=== PATIENT | male | born 1980 | race Hispanic/Latino ===

== ENCOUNTER 2020-08-24 09:59 | Emergency (ER) | payer SELFPAY ==
[~2020-08-24] VITALS: Ht 172.7 cm; Wt 82.0 kg
[2020-08-24 10:37] LABS: HEMATOCRIT 20.6 % (39.0-50.0); IMMATURE GRANULOCYTES 0.4 % (0.0-5.0); MEAN CELL VOLUME 91.2 fL CALC (80.0-100.0); MEAN CORPUSCULAR HGB 28.8 pG CALC (26.0-32.0); MEAN CORPUSCULAR HGB CONC 31.6 g/dL CAL (32.0-36.0); NEUT# 11.59 thou/uL (1.82-7.42); RED BLOOD COUNT 2.26 mill/uL (4.70-6.10); RED CELL DISTRI WIDTH 13.2 % (11.5-15.5)
[2020-08-24 11:05] LABS: ALBUMIN 4.3 g/dL (3.2-5.0); ALKALINE PHOSPHATASE 52 u/l (38-126); BILIRUBIN, TOTAL 0.4 mg/dL (0.0-1.4); CHLORIDE 106 mmol/l (95-108); POTASSIUM 4.2 mmol/l (3.5-5.1); SGOT/AST 23 u/l (17-59); SODIUM 140 mmol/l (137-146); TOTAL PROTEIN 7.9 g/dL (6.3-8.2)
[2020-08-24 11:09] LABS: HEMOGLOBIN 6.5 g/dl (14.0-18.0)
[2020-08-24 12:13] LABS: ANION GAP 33 (6-22 (CALC)); BUN/CREATININE RATIO 5 (12-20 (CALC)); GFR 2 ML/MIN (>=60 (CALC)); GFR FOR AFR.AMER. 2 ML/MIN (>=60 (CALC))
[2020-08-24 12:15] LABS: BUN 158 mg/dL (9-20); CARBON DIOXIDE < 5 mmol/l (22-30)
[2020-08-24 12:16] LABS: CREATININE 29.2 mg/dL (0.7-1.3)
[2020-08-24 12:23] LABS: URINE BILIRUBIN - DIPSTICK NEGATIVE (NEGATIVE); URINE BLOOD DIPSTICK MODERATE (NEGATIVE); URINE COLOR YELLOW; URINE GLUCOSE - DIPSTICK NEGATIVE (NEGATIVE); URINE KETONE NEGATIVE (NEGATIVE); URINE LEUK ESTERASE NEGATIVE (NEGATIVE); URINE PH 5.5 (4.5-8.0); URINE PROTEIN - DIPSTICK 100 mg/dL (NEG-TRACE); URINE UROBILINOGEN - DIPSTICK 0.2 E.U./dL (0.2)
[2020-08-24 12:26] LABS: URINE NITRITE - DIPSTICK NEGATIVE (Negative)
[2020-08-24 12:27] LABS: URINE EPITHELIAL CELLS FEW EPI/hpf (0-FEW); URINE MUCUS MODERATE hpf (NONE-FEW)
[2020-08-24 13:30] VITALS: BP 177/88
[2020-08-24 13:56] VITALS: BP 176/88
[2020-08-24 14:30] VITALS: BP 186/88
== END 2020-08-24 14:30 | DRG 812 ==
LOC: ED 09:59
PROVIDERS: Family Medicine
PROC: 30233N1 Transfusion of Nonautologous Red Blood Cells into Peripheral Vein, Percutaneous Approach (ICD-10-PCS; principal; 2020-08-24)
DX: D64.9 Anemia, unspecified (principal); N17.9 Acute kidney failure, unspecified; E83.51 Hypocalcemia; R10.84 Generalized abdominal pain; I10 Essential (primary) hypertension; F17.200 Nicotine dependence, unspecified, uncomplicated; Z20.822 Contact with and (suspected) exposure to COVID-19
CPT/HCPCS: P9016; S0164

== ENCOUNTER 2021-02-15 07:49 | Emergency (ER) | payer SELFPAY ==
[~2021-02-15] VITALS: Ht 172.7 cm; Wt 104.5 kg
[2021-02-15] MEDS ORDERED: CLONIDINE0.1 MG PO (08:08)
[2021-02-15] MEDS ORDERED: CALCITRIOL0.25 MC1 PO (08:08)
[2021-02-15] MEDS ORDERED: METOPROLOL TAR100 MG PO (08:09)
[2021-02-15] MEDS ORDERED: CALTRATE 600+D1 CHW PO (08:09)
[2021-02-15 08:57] LABS: IMMATURE GRANULOCYTES 0.1 % (0.0-5.0); MEAN CORPUSCULAR HGB 26.3 pG CALC (26.0-32.0); MEAN CORPUSCULAR HGB CONC 31.9 g/dL CAL (32.0-36.0); NEUT# 5.09 thou/uL (1.82-7.42); RED BLOOD COUNT 3.38 mill/uL (4.70-6.10); RED CELL DISTRI WIDTH 14.1 % (11.5-15.5)
[2021-02-15 09:01] LABS: HEMATOCRIT 27.9 % (39.0-50.0); HEMOGLOBIN 8.9 g/dl (14.0-18.0); MEAN CELL VOLUME 82.5 fL CALC (80.0-100.0)
[2021-02-15 09:15] LABS: ALBUMIN 4.2 g/dL (3.2-5.0); TOTAL PROTEIN 7.5 g/dL (6.3-8.2)
[2021-02-15 09:38] LABS: BILIRUBIN, TOTAL 0.7 mg/dL (0.0-1.4); POTASSIUM 5.9 mmol/l (3.5-5.1)
[2021-02-15] MEDS ORDERED: SPS15 GM/601 PO (10:23)
[2021-02-15 13:15] VITALS: BP 182/90
== END 2021-02-15 13:18 | disposition home or self-care (01) | DRG 640 ==
LOC: ED 07:49
PROVIDERS: Family Medicine
DX: E87.5 Hyperkalemia (principal); N18.6 End stage renal disease; I12.0 Hypertensive chronic kidney disease with stage 5 chronic kidney disease or end stage renal disease; E87.1 Hypo-osmolality and hyponatremia; R51.9 Headache, unspecified; Z99.2 Dependence on renal dialysis

== ENCOUNTER 2021-02-18 08:54 | Emergency (ER) | payer SELFPAY ==
[~2021-02-18] VITALS: Ht 172.7 cm; Wt 111.0 kg
[~2021-02-18 08:54] MED LIST: CALCITRIOL0.25 MC1 PO; CALTRATE 600+D1 CHW PO; CLONIDINE0.1 MG PO; METOPROLOL TAR100 MG PO; SPS15 GM/601 PO
[2021-02-18 09:30] LABS: HEMATOCRIT 28.1 % (39.0-50.0); HEMOGLOBIN 8.7 g/dl (14.0-18.0); IMMATURE GRANULOCYTES 0.1 % (0.0-5.0); MEAN CELL VOLUME 84.4 fL CALC (80.0-100.0); MEAN CORPUSCULAR HGB 26.1 pG CALC (26.0-32.0); NEUT# 11.48 thou/uL (1.82-7.42); RED BLOOD COUNT 3.33 mill/uL (4.70-6.10); RED CELL DISTRI WIDTH 14.5 % (11.5-15.5)
[2021-02-18 09:47] LABS: ALBUMIN 4.5 g/dL (3.2-5.0); BILIRUBIN, TOTAL 0.6 mg/dL (0.0-1.4); TOTAL PROTEIN 7.7 g/dL (6.3-8.2)
[2021-02-18 09:56] LABS: POTASSIUM 5.9 mmol/l (3.5-5.1)
[2021-02-18 09:57] LABS: CREATININE 14.3 mg/dL (0.7-1.3)
[2021-02-18 11:05] LABS: URINE BILIRUBIN - DIPSTICK NEGATIVE (NEGATIVE); URINE BLOOD DIPSTICK SMALL (NEGATIVE); URINE COLOR YELLOW; URINE GLUCOSE - DIPSTICK 250 mg/dL (NEGATIVE); URINE KETONE NEGATIVE (NEGATIVE); URINE LEUK ESTERASE NEGATIVE (NEGATIVE); URINE PROTEIN - DIPSTICK >=300 mg/dL (NEG-TRACE); URINE SPECIFIC GRAVITY 1.015; URINE UROBILINOGEN - DIPSTICK 0.2 E.U./dL (0.2)
[2021-02-18 11:17] LABS: URINE NITRITE - DIPSTICK NEGATIVE (Negative)
[2021-02-18 11:18] LABS: URINE EPITHELIAL CELLS FEW EPI/hpf (0-FEW); URINE MUCUS MODERATE hpf (NONE-FEW); URINE RBC 0-2 RBC/hpf (0-5)
[2021-02-18 15:39] VITALS: BP 191/94
== END 2021-02-18 15:40 | DRG 682 ==
LOC: ED 08:54
PROVIDERS: Emergency Medicine
DX: I12.0 Hypertensive chronic kidney disease with stage 5 chronic kidney disease or end stage renal disease (principal); N18.6 End stage renal disease; E87.5 Hyperkalemia; Z99.2 Dependence on renal dialysis; Z20.822 Contact with and (suspected) exposure to COVID-19